=== PATIENT | female | born 1975 | race Two or more races ===

== ENCOUNTER → 2024-08-30 | Outpatient (CLI) | payer MEDICAID, SELFPAY ==
--- NOTE | 2024-08-30 13:00 | XR_ITS ---
Examination: Breast ultrasound, unilateral, right complete Date and time of exam: August 30, 2024 1306 hours INDICATIONS: Mammogram June 04, 2024 8 mm focal asymmetry retroareolar region right breast Technique: Real-time correa scale ultrasonographic imaging performed right breast including all 4 quadrants as well as nipple retroareolar and axillary region. Findings: No cystic or solid mass IMPRESSION: BI-RADS Category 1: Negative studies
--- NOTE | 2024-08-30 13:45 | XR_ITS ---
Examination: Diagnostic digital mammography, unilateral, right Computer aided detection 3-D breast Tomosynthesis, unilateral Date and time of exam: August 30, 2024 at 1418 hours Compared to mammograms June 04, 2024 INDICATIONS: Mammogram June 04, 2024 8 mm focal asymmetry retroareolar region right breast Technique: Nonmagnified MLO, CC views of the right breast have been obtained, reconstructed from 3-D Tomosynthesis images. R2 computer aided detection program utilized for evaluation of suspicious masses and/or abnormal calcifications. 3-D Tomosynthesis images obtained. Findings: Scattered areas of fibroglandular density Right breast sonogram today demonstrates no cystic or solid mass Spot compression films demonstrate no suspicious mass Impression: BI-RADS category 2: Benign findings Return to yearly follow-up mammography
== END | disposition home or self-care (01) ==
LOC: CDIM 13:24
PROVIDERS: PCP Nurse Practitioner Family; Referring Provider Nurse Practitioner Family; Visit Provider Nurse Practitioner Family
DX: R92.321 Mammographic fibroglandular density, right breast (principal)
CPT/HCPCS: 76641; 77061; 77065; G0279

== ENCOUNTER → 2024-09-07 | Outpatient (BNVA) | payer MEDICAID, SELFPAY | END | disposition home or self-care (01) | PROVIDERS: PCP Nurse Practitioner Family; Referring Provider Nurse Practitioner Family; Visit Provider Nurse Practitioner Family | DX: Z71.2 Person consulting for explanation of examination or test findings (principal) | CPT/HCPCS: 99212; G0463 ==

== ENCOUNTER → 2024-12-17 | Outpatient (BNVA) | payer MEDICAID, SELFPAY | END | disposition home or self-care (01) | PROVIDERS: PCP Nurse Practitioner Family; Referring Provider Nurse Practitioner Family; Visit Provider Nurse Practitioner Family | DX: Z71.3 Dietary counseling and surveillance (principal); E66.9 Obesity, unspecified; Z68.39 Body mass index [BMI] 39.0-39.9, adult; R73.03 Prediabetes; E78.5 Hyperlipidemia, unspecified; K04.7 Periapical abscess without sinus | CPT/HCPCS: 96372; 99214; A4216; J0696 ==

== ENCOUNTER → 2024-12-24 | Outpatient (BNVA) | payer MEDICAID, SELFPAY | END | disposition home or self-care (01) | PROVIDERS: PCP Nurse Practitioner Family; Referring Provider Nurse Practitioner Family; Visit Provider Nurse Practitioner Family | DX: E55.9 Vitamin D deficiency, unspecified (principal); E78.5 Hyperlipidemia, unspecified; R73.03 Prediabetes; R03.0 Elevated blood-pressure reading, without diagnosis of hypertension | CPT/HCPCS: 99214 ==

== ENCOUNTER → 2024-12-29 | Outpatient (BNVA) | payer MEDICAID, SELFPAY | END | disposition home or self-care (01) | PROVIDERS: PCP Nurse Practitioner Family; Referring Provider Nurse Practitioner Family; Visit Provider Nurse Practitioner Family | DX: N76.0 Acute vaginitis (principal); N95.2 Postmenopausal atrophic vaginitis; R03.0 Elevated blood-pressure reading, without diagnosis of hypertension | CPT/HCPCS: 81001; 99215 ==

== ENCOUNTER → 2025-01-06 | Outpatient (BNVA) | payer MEDICAID, SELFPAY | END | disposition home or self-care (01) | PROVIDERS: PCP Nurse Practitioner Family; Referring Provider Nurse Practitioner Family; Visit Provider Nurse Practitioner Family | DX: Z12.11 Encounter for screening for malignant neoplasm of colon (principal); Z71.2 Person consulting for explanation of examination or test findings | CPT/HCPCS: 99212; G0463 ==

== ENCOUNTER → 2025-01-12 | Outpatient (BNVA) | payer MEDICAID, SELFPAY | END | disposition home or self-care (01) | PROVIDERS: PCP Nurse Practitioner Family; Referring Provider Nurse Practitioner Family; Visit Provider Nurse Practitioner Family | DX: Z71.3 Dietary counseling and surveillance (principal); Z68.39 Body mass index [BMI] 39.0-39.9, adult; R73.03 Prediabetes; Z71.2 Person consulting for explanation of examination or test findings | CPT/HCPCS: 99213 ==

== ENCOUNTER → 2025-03-22 | Outpatient (BNVA) | payer MEDICAID, SELFPAY | END | disposition home or self-care (01) | PROVIDERS: PCP Nurse Practitioner Family; Referring Provider Nurse Practitioner Family; Visit Provider Nurse Practitioner Family | DX: Z71.3 Dietary counseling and surveillance (principal); E66.9 Obesity, unspecified; Z68.39 Body mass index [BMI] 39.0-39.9, adult; Z23 Encounter for immunization; R73.03 Prediabetes | CPT/HCPCS: 90471; 90677; 90715; 99213; G0009 ==

== ENCOUNTER → 2025-04-20 | Outpatient (BNVA) | payer MEDICAID, SELFPAY | END | disposition home or self-care (01) | PROVIDERS: PCP Nurse Practitioner Family; Referring Provider Nurse Practitioner Family; Visit Provider Nurse Practitioner Family | DX: Z71.3 Dietary counseling and surveillance (principal); E66.9 Obesity, unspecified; Z68.37 Body mass index [BMI] 37.0-37.9, adult | CPT/HCPCS: 99213 ==

== ENCOUNTER → 2025-04-26 | Outpatient (BNVA) | payer MEDICAID, SELFPAY | END | disposition home or self-care (01) | PROVIDERS: PCP Nurse Practitioner Family; Referring Provider Nurse Practitioner Family; Visit Provider Nurse Practitioner Family | DX: Z00.00 Encounter for general adult medical examination without abnormal findings (principal); Z13.220 Encounter for screening for lipoid disorders; Z11.3 Encounter for screening for infections with a predominantly sexual mode of transmission; Z12.11 Encounter for screening for malignant neoplasm of colon; E66.9 Obesity, unspecified; Z68.36 Body mass index [BMI] 36.0-36.9, adult; Z13.29 Encounter for screening for other suspected endocrine disorder | CPT/HCPCS: 99173; 99215 ==

== ENCOUNTER → 2025-05-10 | Outpatient (BNVA) | payer MEDICAID, SELFPAY | END | disposition home or self-care (01) | PROVIDERS: PCP Nurse Practitioner Family; Referring Provider Nurse Practitioner Family; Visit Provider Nurse Practitioner Family | DX: Z71.2 Person consulting for explanation of examination or test findings (principal); E78.5 Hyperlipidemia, unspecified; E55.9 Vitamin D deficiency, unspecified; R73.03 Prediabetes | CPT/HCPCS: 99212; G0463 ==

== ENCOUNTER → 2025-05-19 | Outpatient (BNVA) | payer MEDICAID, SELFPAY | END | disposition home or self-care (01) | PROVIDERS: PCP Nurse Practitioner Family; Referring Provider Nurse Practitioner Family; Visit Provider Nurse Practitioner Family | DX: Z71.3 Dietary counseling and surveillance (principal); E66.812 Obesity, class 2; Z68.37 Body mass index [BMI] 37.0-37.9, adult; N30.00 Acute cystitis without hematuria | CPT/HCPCS: 81001; 99214; 99215 ==

== ENCOUNTER → 2025-05-30 | Outpatient (BNVA) | payer MEDICAID, SELFPAY | END | disposition home or self-care (01) | PROVIDERS: PCP Nurse Practitioner Family; Referring Provider Nurse Practitioner Family; Visit Provider Nurse Practitioner Family | DX: Z71.2 Person consulting for explanation of examination or test findings (principal); N30.00 Acute cystitis without hematuria; R80.9 Proteinuria, unspecified | CPT/HCPCS: 99212; G0463 ==

== ENCOUNTER → 2025-06-16 | Outpatient (BNVA) | payer MEDICAID, SELFPAY | END | disposition home or self-care (01) | PROVIDERS: PCP Nurse Practitioner Family; Referring Provider Nurse Practitioner Family; Visit Provider Nurse Practitioner Family | DX: Z71.3 Dietary counseling and surveillance (principal); E66.812 Obesity, class 2; Z68.37 Body mass index [BMI] 37.0-37.9, adult | CPT/HCPCS: 99213 ==

== ENCOUNTER → 2025-07-06 | Outpatient (BNVA) | payer MEDICAID, SELFPAY | END | disposition home or self-care (01) | PROVIDERS: PCP Nurse Practitioner Family; Referring Provider Nurse Practitioner Family; Visit Provider Nurse Practitioner Family | DX: Z71.2 Person consulting for explanation of examination or test findings (principal); R80.9 Proteinuria, unspecified | CPT/HCPCS: 99212; G0463 ==

== ENCOUNTER → 2025-07-14 | Outpatient (BNVA) | payer MEDICAID, SELFPAY | END | disposition home or self-care (01) | PROVIDERS: PCP Nurse Practitioner Family; Referring Provider Nurse Practitioner Family; Visit Provider Nurse Practitioner Family | DX: Z71.3 Dietary counseling and surveillance (principal); E66.812 Obesity, class 2; Z68.34 Body mass index [BMI] 34.0-34.9, adult | CPT/HCPCS: 99213 ==

== ENCOUNTER → 2025-08-17 | Outpatient (BNVA) | payer MEDICAID, SELFPAY | END | disposition home or self-care (01) | PROVIDERS: PCP Nurse Practitioner Family; Referring Provider Nurse Practitioner Family; Visit Provider Nurse Practitioner Family | DX: Z12.31 Encounter for screening mammogram for malignant neoplasm of breast (principal); Z71.3 Dietary counseling and surveillance; E66.812 Obesity, class 2; Z68.37 Body mass index [BMI] 37.0-37.9, adult; Z23 Encounter for immunization | CPT/HCPCS: 90471; 90686; 99213; G0008 ==

== ENCOUNTER → 2025-08-29 | Outpatient (CLI) | payer MEDICAID, SELFPAY ==
--- NOTE | 2025-08-29 09:45 | XR_ITS ---
Examination: Screening digital mammography, bilateral Computer aided detection 3-D breast Tomosynthesis, bilateral Date and time of exam: August 29, 2025, 0942 hours, compared to mammograms dating to June 04, 2024 Indication: Screening Technique: Nonmagnified MLO, CC views of the breasts to been obtained, reconstructed from 3-D Tomosynthesis images. R2 computer aided detection program utilized for evaluation of suspicious masses and/or abnormal calcifications. 3-D Tomosynthesis images obtained. Findings: Scattered areas of fibroglandular density. Benign calcifications. No interval suspicious masses Impression: BI-RADS category II: Benign Findings. Recommend 1 year follow-up mammogram.
== END | disposition home or self-care (01) ==
LOC: CDIM 09:35
PROVIDERS: Referring Provider Nurse Practitioner Family; Visit Provider Nurse Practitioner Family
DX: Z12.31 Encounter for screening mammogram for malignant neoplasm of breast (principal); R92.323 Mammographic fibroglandular density, bilateral breasts; R92.1 Mammographic calcification found on diagnostic imaging of breast
CPT/HCPCS: 77063; 77067

== ENCOUNTER → 2025-09-12 | Outpatient (BNVA) | payer MEDICAID, SELFPAY | END | disposition home or self-care (01) | PROVIDERS: PCP Nurse Practitioner Primary Care; Referring Provider Nurse Practitioner Primary Care; Visit Provider Nurse Practitioner Primary Care | DX: K04.7 Periapical abscess without sinus (principal) | CPT/HCPCS: 96372; 99213; A4216; J0696 ==

== ENCOUNTER 2025-09-13 20:52 | Emergency (ER) | payer MEDICAID, SELFPAY ==
[2025-09-13 20:56] VITALS: BMI 31.1
[2025-09-13 21:07] VITALS: BP 163/121; PULSE 105; RESP 20; TEMP 36.8; O2SAT 100
--- NOTE | 2025-09-13 21:21 | EDNOTE_ITS ---
ED Dental RME/HPI General Chief complaint: General Adult/Misc Complain Stated complaint: NAUSEA WEAKNESS DENTAL PAIN Time Seen by Provider: 09/13/25 21:18 Arrival date/time: 09/13/25 20:52 50F with history of anxiety presents to ED with several days of dental pain and some N/V. Patient had dental work about 2 weeks ago and was put on amoxicillin. Limitations: no limitations Related Data Previous Rx's ?Medication ?Instructions ?Recorded tirzepatide (weight loss) 15 15 mg (0.5 mL) subcut QWE EK 4 08/17/25 mg/0.5 mL subcutaneous pen weeks #2 mL injector (Zepbound) amoxicillin 875 mg-potassium 1 tab PO Q12H #14 tabs clavulanate 125 mg tablet chlorhexidine gluconate 0.12 % 15 ml buccal BID 5 days #473 mL 09/12/25 mouthwash amoxicillin 875 mg-potassium 1 tab PO BID 7 days #14 t abs 09/13/25 clavulanate 125 mg tablet Allergies Allergy/AdvReac Type Severity Reaction Status Date / Time ibuprofen Allergy Anaphylaxis Verified 09/13/25 21:00 Review of Systems Review of Systems Systems Reviewed: All systems reviewed, normal except as documented ENT Ears, Nose, Mouth, and Throat: Reports as per HPI and Reports dental pain Gastrointestinal Gastrointestinal: Reports as per HPI, Reports nausea and Reports vomiting Past Medical History Past Medical History NEUROLOGIC: Negative Neurological Disorders or Seizures CARDIAC: Negative Cardiac Disorders or Congestive Heart Failure RESPIRATORY: Negative Chronic Obstructive Pulmonary Disease (COPD) or Asthma GASTROINTESTINAL: Negative Gastrointestinal Disorders GENITOURINARY: Negative Genitourinary Disorders or Renal Disease MUSCULOSKELETAL: Negative Musculoskeletal Disorders ENDOCRINE: Negative Endocrine Disorders, Diabetes Mellitus Type 1 or Diabetes Mellitus Type 2 HEMATOLOGIC: Negative Blood Disorders or Sickle Cell Disease PSYCHO/SOCIAL: Positive Anxiety OTHER HISTORY: Positive Blood Transfusions; Negative Blood Transfusion Reaction or Anesthesia Reactions Surgical History SURGICAL: Positive Section Social History SMOKING STATUS: Never smoker SECOND HAND EXPOSURE: No SUBSTANCE USE: does not use ED Exam General Limitations: Present no limitations General appearance: Present alert and in no apparent distress Head Head exam: Present atraumatic ENT ENT exam: Present mucous membranes moist Expanded ENT Exam Teeth exam: Present dental tenderness # Neck Neck exam: Present normal inspection, full ROM and trachea midline Chest Chest inspection: Present normal inspection and symmetric chest wall rise Neurological Exam Neurological exam: Present alert and oriented X3 Psychiatric Psychiatric exam: Present normal affect and normal mood Skin Skin exam: Present warm, dry, intact and normal color Course Quality Measures none Orders Category Date Time Status Amoxicillin/Pot Clav 875 [Augmentin 875] Med 09/13/25 21:19 Discontinued 1 tab PO X1 ONE Ondansetron Odt [Zofran Odt] Med 09/13/25 21:19 Discontinued 4 mg PO X1 ONE dexAMETHasone INJ [Decadron Inj] Med 09/13/25 21:19 Discontinued 10 mg PO X1 ONE Vital Signs Vital signs: Vital Signs Temperature 98.2 F 09/13/25 21:07 Pulse Rate 105 H 09/13/25 21:07 Respiratory Rate 20 09/13/25 21:07 Blood Pressure 163/121 H 09/13/25 21:07 Pulse Oximetry (%) 100 09/13/25 21:07 Oxygen Delivery Method Room Air 09/13/25 21:07 O2 at 100% on RA and WNLs Dental / Oral MDM Narrative MDM Narrative:: 50F with history of anxiety presents to ED with several days of dental pain and some N/V. Patient had dental work about 2 weeks ago and was put on amoxicillin. Physical exam reveals dental tenderness, but no obvious swelling. Speech and tongue position normal. Patient is afebrile, calm, and alert. Meds and chemical dependency counselor given. Patient data External records reviewed:: [facility] previous records Clinical information provided by:: patient Social determinants that could affect healthcare access:: mental health Patient has the following chronic illnesses:: anxiety How is presenting disease/condition affected by chronic disease/condition?: exacerbated by Evaluation data The following diagnostics were reviewed and interpreted by me:: other (specify) (none) Lab and/or radiology exams considered but not ordered:: not ordered Interpretation Summary: n/a Medications / Prescriptions Medications or Prescriptions considered but not ordered:: ordered Medication administrations:: Medication Administration History Discontinued Medications Amoxicillin/Clavulanate Potassium (Amoxicillin/Pot Clav 875 Tablet) 1 tab PO X1 ONE Stop: 09/13/25 21:20 Last Admin: 09/13/25 21:51 Dose: 1 tab Documented By: LISS Dexamethasone Sodium Phosphate (Dexamethasone Sod Phos Inj 10 Mg/Ml Vial) 10 mg PO X1 ONE Stop: 09/13/25 21:20 Last Admin: 09/13/25 21:50 Dose: 10 mg Documented By: LISS Ondansetron HCl (Ondansetron Odt 4 Mg Tabrap) 4 mg PO X1 ONE; Protocol Stop: 09/13/25 21:20 Last Admin: 09/13/25 21:51 Dose: 4 mg Documented By: LISS above Consultations Consultation(s) initiated? (list below): No Diagnosis Dental Differential Diagnosis: gingival abscess, dental caries, toothache, dental abscess, fracture of tooth and aphthous ulcer Most likely diagnosis given after review of the tests above:: dental infection Admission Indicated Admission indicated?: not indicated Admission Request Was there a request for admission?: No Disposition Plan Disposition Plan: Discharge Discharge Attestation Discharge Attestation: The patient and all family members were given an opportunity to ask questions and understood the discharge instructions. Discharge instructions specifically effects, indications for sooner follow up or return to the emergency department, and the expected course of current diagnosis. Patient condition: Stable Discharge Plan Plan Patient Disposition: HOME (Self Care) Discharge Disposition comment: Stable Prescriptions/Referrals Prescriptions/Med Rec: New amoxicillin-pot clavulanate 875-125 mg tablet 1 tab PO BID 7 Days Qty: 14 0RF No Action Zepbound 15 mg/0.5 mL pen injector 15 mg subcut QWEEK 28 Days Qty: 2 0RF amoxicillin-pot clavulanate 875-125 mg tablet 1 tab PO Q12H Qty: 14 0RF chlorhexidine gluconate 0.12 % mouthwash 15 ml buccal BID 5 Days Qty: 473 0RF Rx Instructions: swish for 30 sec and spit out Referrals: Emily [facility],Luz Royal [employer]ING NO[employer]LEMAN [Primary Care Provider, Family Practice] - In 1 week Problem List Clinical Impression: Dental infection Patient/Caregiver Discharge Instructions Education Materials: ED Abscess Antibiotic ... Additional Instructions: Please follow-up with PCP within 24-48 hours and return immediately if symptoms worsen. Stop old ABX and take new ABX. Follow-up with dentist. Print Language: Yi Stand Alone Forms: Patient Portal Info Letter CHERRIE/TRACY Supervising Physician CHERRIE/TRACY Supervising Physician: Dr. Rehman
[2025-09-13] MEDS: AMOXICILLIN/POT CLAV 875 TABLET 1 TAB PO (21:51)
[2025-09-13] MEDS: ONDANSETRON ODT 4 MG TABRAP PO (21:51)
[2025-09-13 21:57] VITALS: BP 153/99; PULSE 90; RESP 20; TEMP 36.7; O2SAT 100
== END 2025-09-13 22:01 | disposition home or self-care (01) ==
PROVIDERS: Emergency Provider Emergency Medicine; PCP Nurse Practitioner Family
DX: K04.7 Periapical abscess without sinus (principal); R11.2 Nausea with vomiting, unspecified
CPT/HCPCS: 99282; J1100; Q0162; A9270

== ENCOUNTER → 2025-09-14 | Outpatient (BNVA) | payer MEDICAID, SELFPAY | END | disposition home or self-care (01) | PROVIDERS: PCP Nurse Practitioner Primary Care; Referring Provider Nurse Practitioner Primary Care; Visit Provider Nurse Practitioner Primary Care | DX: E66.812 Obesity, class 2 (principal); Z71.3 Dietary counseling and surveillance; Z68.30 Body mass index [BMI] 30.0-30.9, adult | CPT/HCPCS: 99213 ==

== ENCOUNTER 2025-09-15 09:05 | Emergency (ER) | payer MEDICAID, SELFPAY ==
[2025-09-15 09:07] VITALS: BMI 30.5
--- NOTE | 2025-09-15 09:10 | EKG_ITS ---
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
[2025-09-15 09:26] VITALS: BP 150/99; PULSE 86; RESP 17; TEMP 36.6; O2SAT 99
--- NOTE | 2025-09-15 09:48 | EDRME_ITS ---
Rapid Medical Screening Exam RME Arrival date/time: 09/15/25 09:05 Chief Complaint: Headache Time Seen by Provider: 09/15/25 09:37 Vital signs: Vital Signs Temperature 97.9 F 09/15/25 09:26 Pulse Rate 86 09/15/25 09:26 Respiratory Rate 17 09/15/25 09:26 Blood Pressure 150/99 H 09/15/25 09:26 Pulse Oximetry (%) 99 09/15/25 09:26 Oxygen Delivery Method Room Air 09/15/25 09:26 RME Narrative: 50-year-old female with a past medical history of anxiety, prediabetes, hypertension, high cholesterol who had a root removal of a tooth by dentist 2 weeks ago and subsequently followed up with a different dentist yesterday and it was confirmed that it looks like she does still have an infection at the site of the prior tooth removal and was advised to continue her antibiotics and follow- up with her original dentist who performed a tooth removal however given she has been taking her Augmentin for 2 days and had 4 doses and her pain feels about the same along with chest pain, nausea, chills which started upon taking the Augmentin. Denies dysphagia, shortness of breath, vomiting, diarrhea. I briefly performed a screening evaluation to initiate work-up and expedite care. Complete history, physical exam, and plan of care is deferred to the provider in the main ED. Exam: Head: Normocephalic, atraumatic. Respiratory: Normal effort. No respiratory distress or accessory muscle use. Neuro: Speech normal. Skin: Warm, dry, normal color. Psych: Pleasant. Normal affect. Cooperative. Clinical Impression: Adverse medication reaction complicated by anxiety however must rule out ACS
--- NOTE | 2025-09-15 09:52 | XR_ITS ---
PA and lateral chest film on 09/15/2025 at 9:59 a.m. Comparison study 05/21/2018 INDICATION: Chest pain for 2 days there is multilevel mildly prominent degenerative disc space narrowing throughout the dorsal spine with small degenerative-ites osteophytes on the anterior and right lateral aspect of the vertebra. No pleural fluid is present on either side. Surgical clips are seen in the gallbladder fossa. Heart and mediastinum appear normal. Both lungs are well expanded and clear. IMPRESSION: 1. Multilevel mildly prominent degenerative disc disease throughout the entire dorsal spine with very mild scoliosis convexity to the right 2. Chest film otherwise entirely normal
[2025-09-15] MEDS: HYDROcodone/APAP 5/325 TABLET 1 TAB PO (10:08)
[2025-09-15] MEDS: ONDANSETRON ODT 4 MG TABRAP PO (10:08)
[2025-09-15 10:26] LABS: Basophils # (Auto) 0.0 Thou/mm3 (0.0-0.2); Basophils % (Auto) 1 % (0-2.5); Eosinophils # (Auto) 0.1 Thou/mm3 (0.0-0.5); Eosinophils % (Auto) 1 % (0-10); Hematocrit 39.8 % (36.0-46.0); Hemoglobin 13.4 g/dL (12.0-16.0); Immature Granulocytes Auto 0.02 Thou/mm3 (0.00-0.00); Lymphocytes # (Auto) 1.6 Thou/mm3 (1.0-4.8); Lymphocytes % (Auto) 26 % (10-50); Mean Corpuscular HGB Conc 33.7 g/dl (31.0-37.0); Mean Corpuscular Hemoglobin 30.2 pg (25.0-35.0); Mean Corpuscular Volume 90 fL (80-100); Monocytes # (Auto) 0.5 Thou/mm3 (0.0-0.8); Monocytes % (Auto) 8 % (0-12); Neutrophils # (Auto) 4.0 Thou/mm3 (1.8-7.7); Neutrophils % (Auto) 64 % (37-80); Nucleated Red Blood Cell # 0.00 Thou/mm3 (0.00-0.00); Nucleated Red Blood Cell % 0 /100 WBC (0); Platelet Count 245 Thou/mm3 (140-440); RDW Standard Deviation 42.1 fL (36.4-46.3); Red Blood Count 4.43 Miln/mm3 (4.00-5.20); White Blood Count 6.2 Thou/mm3 (3.6-11.0)
[2025-09-15 10:45] LABS: INR 1.0 (0.9-1.3); Prothrombin Time 10.9 Seconds (9.0-12.2)
[2025-09-15 10:51] LABS: HCG,Qualitative Serum Negative
[2025-09-15 10:52] LABS: B-Type Natriuretic Peptide < 20 pg/mL (0-100)
[2025-09-15 10:53] LABS: Alanine Aminotransferase 17 U/L (10-49); Albumin, Serum 4.9 gm/dL (3.5-5.0); Albumin/Globulin Ratio 2.0 (1.2-2.2); Alkaline Phosphatase 106 U/L (46-116); Anion Gap 10 (7-16); Aspartate Amino Transferase 17 U/L (0-34); BUN/Creatinine Ratio 14 Ratio (12-20); Bilirubin,Total 0.6 mg/dL (0.3-1.2); Blood Urea Nitrogen 13 mg/dL (9-23); Calcium 9.6 mg/dL (8.3-10.6); Calcium (Corrected) 9.6 mg/dL (8.5-10.1); Carbon Dioxide 24.7 mMol/L (20.0-31.0); Chloride 110 mMol/L (98-107); Creatinine (Component) 0.9 mg/dL (0.6-1.3); Estimated Creatinine Clearance 69.7 mL/min (>60); Globulin 2.5 gm/dL (2.3-3.5); Glucose 93 mg/dL (74-106); Lipase 51 U/L (12-53); Osmolality,Calculated 288 (275-295); Potassium 3.1 mMol/L (3.4-5.1); Sodium 145 mMol/L (136-145); Total Protein 7.4 gm/dL (5.7-8.2); Troponin I < 0.002 ng/mL (0.0-0.045); eGFR > 60 See Note
--- NOTE | 2025-09-15 12:17 | EDNOTE_ITS ---
ED General RME/HPI General Chief complaint: Headache Stated complaint: NAUSEA, HIGH BP, HEADACHE, CHILLS, CHEST PAIN Time Seen by Provider: 09/15/25 09:37 Arrival date/time: 09/15/25 09:05 RME / HPI RME / HPI narrative: 50-year-old female with a past medical history of anxiety, prediabetes, hypertension, high cholesterol who had a root removal of a tooth by dentist 2 weeks ago and subsequently followed up with a different dentist yesterday and it was confirmed that it looks like she does still have an infection at the site of the prior tooth removal and was advised to continue her antibiotics and follow- up with her original dentist who performed a tooth removal however given she has been taking her Augmentin for 2 days and had 4 doses and her pain feels about the same along with chest pain, nausea, chills which started upon taking the Augmentin. Denies dysphagia, shortness of breath, vomiting, diarrhea. I briefly performed a screening evaluation to initiate work-up and expedite care. Complete history, physical exam, and plan of care is deferred to the provider in the main ED. Exam: Head: Normocephalic, atraumatic. Respiratory: Normal effort. No respiratory distress or accessory muscle use. Neuro: Speech normal. Skin: Warm, dry, normal color. Psych: Pleasant. Normal affect. Cooperative. Impression: Adverse medication reaction complicated by anxiety however must rule out ACS Related Data Previous Rx's ?Medication ?Instructions ?Recorded amoxicillin 875 mg-potassium 1 tab PO Q12H #14 tabs clavulanate 125 mg tablet chlorhexidine gluconate 0.12 % 15 ml buccal BID 5 days #473 mL 09/12/25 mouthwash amoxicillin 875 mg-potassium 1 tab PO BID 7 days #14 t abs 09/13/25 clavulanate 125 mg tablet tirzepatide (weight loss) 15 15 mg (0.5 mL) subcut QWE EK #2 mL 09/14/25 mg/0.5 mL subcutaneous solution (Zepbound) Allergies Allergy/AdvReac Type Severity Reaction Status Date / Time ibuprofen Allergy Anaphylaxis Verified 09/15/25 09:06 ED Exam Narrative Physical exam: Physical Exam: GENERAL: Awake, answering questions appropriately in Burmese, appears stated age HEENT: NC/AT. Moist mucosa. PERRLA/EOMI. CARDIO: Heart RRR, no obvious murmurs, no JVD. PULM: No coughing or visible SOB. Lungs CTA B/L. GI: Abdomen soft, NT/ND, +BS. SKIN/MSK/EXT: No wounds/discoloration/rashes/edema/amputations. +Pedal pulses present B/L. NEURO: Oriented x3, cranial nerves II to XII grossly intact, unable to assess if patient has visual field defects testing was inconclusive based on her level understanding, moves all 4 extremities, no focal neurologic deficits noted. Course Quality Measures none Orders Category Date Time Status Continuous EKG monitoring NOW Care 09/15/25 09:52 Active Continuous Pulse Oximetry NOW Care 09/15/25 09:52 Active EKG (ED ONLY) *Do not use* NOW Care 09/15/25 09:[address] head/brain wo con Stat Exams 09/15/25 12:34 Completed EKG (ED Only) Stat Exams 09/15/25 09:10 Draft XR chest 2V Stat Exams 09/15/25 09:52 Completed B-Type Natriuretic Peptide Stat Lab 09/15/25 10:13 Completed CBC Stat Lab 09/15/25 10:13 Completed Comprehensive Metabolic Panel Stat Lab 09/15/25 10:13 Completed HCG,Qualitative Serum Stat Lab 09/15/25 10:13 Completed INR [Prothrombin Time with INR] Stat Lab 09/15/25 10:13 Completed Lipase Stat Lab 09/15/25 10:13 Completed Troponin I Stat Lab 09/15/25 10:13 Completed Troponin I Stat Lab 09/15/25 13:07 Completed HYDROcodone*/APAP 5/325 [[place] 5/325] Med 09/15/25 09:54 Discontinued 1 tab PO X1 ONE Ondansetron Odt [Zofran Odt] Med 09/15/25 09:54 Discontinued 4 mg PO X1 ONE Potassium Chloride [K-Dur] Med 09/15/25 14:29 Once 40 meq PO X1 ONE Vital Signs Vital signs: Vital Signs Temperature 97.9 F 09/15/25 09:26 Pulse Rate 86 09/15/25 09:26 Respiratory Rate 17 09/15/25 09:26 Blood Pressure 150/99 H 09/15/25 09:26 Pulse Oximetry (%) 99 09/15/25 09:26 Oxygen Delivery Method Room Air 09/15/25 09:26 Discharge Plan Plan Patient Disposition: HOME (Self Care) Patient condition on transfer: Stable Prescriptions/Referrals Prescriptions/Med Rec: No Action Zepbound 15 mg/0.5 mL solution 15 mg subcut QWEEK Qty: 2 0RF amoxicillin-pot clavulanate 875-125 mg tablet 1 tab PO Q12H Qty: 14 0RF chlorhexidine gluconate 0.12 % mouthwash 15 ml buccal BID 5 Days Qty: 473 0RF Rx Instructions: swish for 30 sec and spit out amoxicillin-pot clavulanate 875-125 mg tablet 1 tab PO BID 7 Days Qty: 14 0RF Referrals: Emily [facility],Luz Royal WIRE STRAIGHTENER [Primary Care Provider, Family Practice] - In 1 week Problem List Clinical Impression: Headache Patient/Caregiver Discharge Instructions Education Materials: Self-Care for Headaches Additional Instructions: Please follow-up with your PCP within 5 days Complete antibiotic course as ordered by your dentist If your symptoms worsen or if you develop dizziness, loss of consciousness, fever/chills, chest pain or shortness of breath - please come back to the ED immediately. Print Language: Burmese Stand Alone Forms: [employer] Info., Patient Portal Info Letter MDM Narrative MDM hospital course (for use when minimal MDM required): HPI: 50-year-old female with past medical history of anxiety, likely undiagnosed hypertension, recent tooth infection on Augmentin presented to the ED on 09/15 for complaint of headache and chest pain. Patient states that she recently fo und out that she has a tooth infection of her front tooth, incisor second on the left. She was apparently started on a low-dose antibiotic by her PCP increase dose to Augmentin for 7 days. She is currently on day 2 of 7 but states that she developed a headache which is the worst headache of her life. Her daughter was at bedside and corroborated her story along with the fact that apparently she went through some sort of anxiety episode due to life stressors. Patient otherwise states that the chest pain feels like prickly sensations all throughout her chest without any pressure-like sensation, no radiation and no shortness of breath. She denies having any pertinent history of heart disease, denies smoking cigarettes, alcohol use or any other illicit substances. She has no family history of heart disease as well denies having any diabetes or hypercholesterolemia. On examination, please refer to the physical exam above; patient presented mildly hypertensive 150/99, heart rate of 86, respiratory rate of 17, afebrile satting 99 on room air. Pertinent lab findings included CBC which was unremarkable, CMP which showed hypokalemia with potassium 3.1, hyperchloremia with chloride of 110 liver function and kidney function were normal, troponin was less than 0.002 and EKG did not show any concerning ST changes. Chest x-ray showed degenerative disc disease but otherwise negative and he had CT ordered due to the worst headache of her life was negative for any acute hemorrhage or mass effect or midline shift. #Headache #Atypical chest pain Based off above findings and clinical examination low likelihood patient has having acute coronary syndrome Head CT was ordered simply because the patient stated that she was having worst headache of her life and there was some possible visual deficits noted on exam as above Head CT is negative, EKG and troponin unremarkable Plan: Patient will be discharged with the following strict instructions Please follow-up with your PCP within 5 days Complete antibiotic course as ordered by your dentist If your symptoms worsen or if you develop dizziness, loss of consciousness, fever/chills, chest pain or shortness of breath - please come back to the ED immediately. Patient seen and assessed with attending Dr. Lydia Cali, DO PGY-2 Internal Medicine - GME Medication Administration(s) Medication Administration History Potassium Chloride (Potassium Chloride 20 Meq Tabcr) 40 meq PO X1 ONE Stop: 09/15/25 14:30 Discontinued Medications Hydrocodone Bitart/Acetaminophen (Hydrocodone/[place]ap 5/325 Tablet) 1 tab PO X1 ONE Stop: 09/15/25 09:55 Last Admin: 09/15/25 10:08 Dose: 1 tab Documented By: CECILE Ondansetron HCl (Ondansetron Odt 4 Mg Tabrap) 4 mg PO X1 ONE; Protocol Stop: 09/15/25 09:55 Last Admin: 09/15/25 10:08 Dose: 4 mg Documented By: CECILE
--- NOTE | 2025-09-15 12:34 | XR_ITS ---
Examination: CT brain head without contrast. 2-D sagittal coronal reconstructions Date and time of exam: 09/15/2025 at 12:57 p.m. CTDI: vol (mGy): 48.9 DLP: (mGycm): 895 Clinical history: Worst headache of her life today Technique: Multiple CT axial sections of the brain have been obtained, 5 mm slice thickness. Contrast has not been administered. 2-D sagittal, coronal reconstructions have been obtained Low dose protocols were performed. One or more of the following dose reduction techniques were used; automated exposure control, adjustment of the mA and/or KV according to patient size, use of iterative reconstruction technique. Findings: No significant ventricular enlargement. Intra-axial or extra-axial hemorrhage density is not seen. No mass effect or midline shift Basal cisterns are not remarkable. Fourth ventricle is midline. Cranial vault intact. There are small calcifications in the globus pallidus bilaterally, this is a normal finding. Impression: Negative for acute hemorrhage, mass effect or midline shift
[2025-09-15 13:48] LABS: Troponin I < 0.002 ng/mL (0.0-0.045)
[2025-09-15 14:25] VITALS: BP 137/92; PULSE 70; RESP 18; TEMP 36.6; O2SAT 98
== END 2025-09-15 14:52 | disposition home or self-care (01) ==
PROVIDERS: Physician Assistant; Emergency Provider Family Medicine; PCP Nurse Practitioner Family
DX: F41.9 Anxiety disorder, unspecified (principal); R51.9 Headache, unspecified; R07.89 Other chest pain; T36.0X5A Adverse effect of penicillins, initial encounter; M51.34 Other intervertebral disc degeneration, thoracic region; R94.31 Abnormal electrocardiogram [ECG] [EKG]; I10 Essential (primary) hypertension; E87.6 Hypokalemia; E87.8 Other disorders of electrolyte and fluid balance, not elsewhere classified
CPT/HCPCS: 36415; 70450; 71046; 80053; 83690; 83880; 84484; 84703; 85025; 85610; 93005; 99283; Q0162; A9270

== ENCOUNTER → 2025-09-26 | Outpatient (BNVA) | payer MEDICAID, SELFPAY | END | disposition home or self-care (01) | PROVIDERS: PCP Nurse Practitioner Family; Referring Provider Nurse Practitioner Family; Visit Provider Nurse Practitioner Family | DX: Z09 Encounter for follow-up examination after completed treatment for conditions other than malignant neoplasm (principal); F32.1 Major depressive disorder, single episode, moderate; F41.9 Anxiety disorder, unspecified; T50.905A Adverse effect of unspecified drugs, medicaments and biological substances, initial encounter; E66.812 Obesity, class 2; Z68.37 Body mass index [BMI] 37.0-37.9, adult | CPT/HCPCS: 99214 ==

== ENCOUNTER → 2025-09-30 | Outpatient (BNVA) | payer MEDICAID, SELFPAY | END | disposition home or self-care (01) | PROVIDERS: PCP Nurse Practitioner Family; Referring Provider Nurse Practitioner Family; Visit Provider Nurse Practitioner Family | DX: F41.9 Anxiety disorder, unspecified (principal); J02.9 Acute pharyngitis, unspecified; Z71.1 Person with feared health complaint in whom no diagnosis is made; F32.1 Major depressive disorder, single episode, moderate | CPT/HCPCS: 99213 ==